=== PATIENT | female | born 1995 | race Two or more races ===

== ENCOUNTER 2016-09-04 10:01 | Emergency (ER) | payer OTHER ==
[~2016-09-04] VITALS: Ht 157.5 cm; Wt 54.5 kg
[2016-09-04 10:55] VITALS: BP 93/62; PULSE 58; RESP 15; O2SAT 100
[2016-09-04 11:55] LABS: APPEARANCE,URINE SLIGHTLY CLOUDY (CLEAR,HAZY); COLOR,URINE YELLOW (YELLOW); OCCULT BLOOD,URINE MODERATE (NEGATIVE); UROBILINOGEN,URINE NORMAL (NORMAL)
[2016-09-04 11:56] LABS: BASOPHILS % (AUTO) 0.4 % (0-3); EOSINOPHILS % (AUTO) 0.6 % (0-5); MONOCYTES % (AUTO) 7.3 % (4-12); Mean Corpuscular Hemoglobin 30.9 pg (27.0-35.0); Mean Corpuscular Volume 94.2 fL (81-100); NEUTROPHILS % (AUTO) 67.9 % (40-74); Platelet Count 255 bil/L (150-400)
--- NOTE | 2016-09-04 12:04 | ED.REPORT ---
HPI-Abd Pain F Under 39 Date of Service September 04, 2016 ED Provider: Liban Boateng DO The patient is a 21 yo female with no significant PMH who presents to the ED for bilateral flank pain onset 2 days ago. Patient reports a week of dysuria, suprapubic tenderness, chills, urinary urgency/frequency, and nausea prior to the onset of the flank pain. She states the flank pain is throbbing and constant. It wraps around her waist and radiates to bilateral upper quadrant abdomen. Patient denies history of UTI in the past and this is the first time she has symptoms like this. She is concerned about kidney infection. Patient denies vaginal discharge or history of STD. She is sexually active with a female partner. She reports regular menses and is not taking any control. No hematuria, vomiting, diarrhea, constipation, or fever. She tried cranberry supplement, but it did not help. No alleviating factor for the flank pain. She has chronic headache that has not changed. She is not taking any medication currently. No PCP. Nursing Notes Stated Complaint: POSS KIDNEYS Chief Complaint: Female Abdominal Pain Nursing Notes Reviewed: Yes Allergies: Coded Allergies: No Known Allergies (Unverified , 09/04/16) Scheduled Sulfamethoxazole/Trimeth 800-160 mg (Bactrim DS) 1 Each Tablet 1 TABLET PO BID Scheduled PRN Naproxen (Naproxen) 250 Mg Tablet 250 MG PO BID PRN PRN For Pain General Time Seen by MD: 11:23 Chief Complaint Abdominal pain, Dysuria, Flank pain right, Flank pain left Hx Obtained From: Patient Arrived By: Walk-in Sudden in Onset?: Yes Onset Occurred: 2 days ago Symptom Duration: Constant Progression since Onset: Unchanged, Constant Location: : Abdomen upper: Flank left: Flank right: Suprapubic Quality: Throbbing Radiation: : Abdomen upper Severity: Current: Moderate Severity: Maximum: Severe Associated with: Reports: Back pain, Chills, Dysuria, Nausea, Urinary frequency , Urinary tract symptoms, Denies: Constipation, Diarrhea, Fever, Hematuria, Shortness of breath, Vaginal discharge, Vomiting Pertinent Negative: Pt denies other symptoms Sexual History / Control: Reports Pt is sexually active : 1 Para: 1 Exacerbated by: Certain positions, Movement Pertinent Negative: Relieved by nothing Recent Healthcare: No recent doctor visit, No recent hospitalization Similar Sx Previous: No Risk Factors Ectopic Risk Stratification No risk factors Past Medical History Past Medical History None Past Surgical History None Family History None Social History Alcohol Use: Denies alcohol use Drug Use: Denies drug use Other Social History: Smokeless tobacco Ambulatory Status Independent Review of Systems Basic Review of Systems Eyes: Vision NL, No discharge ENT: Hearing NL, No pain, No nasal congestion, No pharyngeal pain Hematologic: No bleeding, No bruising Endocrine: No cold intolerance, No heat intolerance, No weight gain, No weight loss Skin: No bruising, No rash, No itch Allergy / Immune: No allergy Neurologic: NL mental status, No weakness, No numbness Psychiatric: Normal thought content Constitutional: Reports: Chills, Denies: Fatigue, Fever Respiratory: Denies: Dyspnea on exertion, Pleuritic pain, Shortness of breath, Wheezing Cardiovascular: Denies: Chest pain, Dyspnea on exertion, Edema GI: Reports: Abdominal pain, Anorexia, Nausea, Denies: Constipation, Diarrhea, Vomiting Female: Reports: Dysuria, Flank pain, Urinary frequency, Urinary urgency, Urination increased, Denies: Hematuria Musculoskeletal: Reports: Back pain, Denies: Joint pain, Joint swelling Complete sys rev & neg: except as marked. Physical Exam Initial Vital Signs Vital Signs (First) Date Time Temp Pulse Resp B/P Pulse Ox O2 Delivery O2 Flow Rate FiO2 09/04/16 10:55 37.1 58 15 93/62 100 Room Air Initial VS: Reviewed Head / Eyes: Atraumatic, Normocephalic, PERRL ENT: Mucous membranes moist, Conjunctiva normal, No scleral icterus Neck: Supple, Non-tender, Full range of motion Lymphatic: No lymphadenopathy Skin: Warm, Dry, No cyanosis Neurologic: Alert, Oriented, Nonfocal Psychiatric: Mood/affect normal, Behavior normal, Normal thought content General/Constitutional: Awake, Alert, No acute distress, Well appearing, Well developed, Well hydrated, Well nourished, Cooperative, Not toxic appearing Respiratory / Chest: Atraumatic, Breath sounds NL, Breath sounds = bilat, No respiratory distress, No rales, No wheezing, No retractions Cardiovascular: Heart rate NL, Regular rhythm, Heart sounds NL, No gallop, No murmurs Abdomen: Atraumatic, Soft, No guarding, No rebound, BS normoactive, No distention, No palpable mass Tenderness/Guarding/Rebound: Positive: Tender RLQ..., Tender RUQ... (Moderate) , Tender flank L, Tender flank R Back: Atraumatic, Inspection NL Flank / Spine / Paraspinal: Positive: Flank tender bilateral Head / Eyes: Atraumatic, Normocephalic, EOMI Skin: Atraumatic, Color NL, No rash Neck: Atraumatic, Supple, No meningismus, Full range of motion, No adenopathy, No swelling, Non-tender Psychiatric: Affect NL, Mood NL Interpretation & Diagnostics Lab Results Interpretation Result Diagram: 09/04/16 1140 09/04/16 1140 Test 09/04/16 11:19 09/04/16 11:40 Urine Color Yellow (YELLOW) Urine Appearance Slightly cloudy Urine pH 7.0 (5.0-8.0) Urine Specific Buckner 1.030 (1.003-1.035) Urine Protein Negativemg/dL (NEG,TRACE) Urine Glucose (UA) Negativemg/dL (NEGATIVE) Urine Ketones Negativemg/dL (NEGATIVE) Urine Occult Blood Moderate (NEGATIVE) Urine Nitrite Negative (NEGATIVE) Urine Bilirubin Negative (NEGATIVE) Urine Urobilinogen Normalmg/dL (NORMAL) Urine Leukocyte Esterase Moderate (NEGATIVE) Urine RBC 3-10/hpf (0-2) Urine WBC 11-50/hpf (0-5) Urine Epithelial Cells Occasional/hpf (NONE-MOD) Urine Crystals None seen (NONE SEEN) Urine Bacteria Many/hpf (NONE-FEW) Urine Hyaline Casts None/lpf (NONE) Urine Granular Casts None seen (NONE SEEN) Urine Waxy Casts None seen (NONE SEEN) Urine Red Blood Cell Casts None seen (NONE SEEN) Urine White Blood Cell Casts None seen (NONE SEEN) Urine Mucus Present (None Seen) Urine Trichomonas None seen (NONE SEEN) Urine Yeast None (NONE SEEN) Urinalysis Comment None Urine Culture Reflexed Indicated White Blood Count 10.5th/mm3 (3.8-10.1) Red Blood Count 4.17mil/mm3 (3.90-5.20) Hemoglobin 12.9g/dL (12.0-15.6) Hematocrit 39.3% (35.0-46.0) Mean Corpuscular Volume 94.2fL (81-100) Mean Corpuscular Hemoglobin 30.9pg (27.0-35.0) Mean Corpuscular Hemoglobin Concent 32.8% (32.0-37.0) Red Cell Distribution Width 12.7% (12.3-15.4) Platelet Count 255bil/L (150-400) Neutrophils (%) (Auto) 67.9% (40-74) Lymphocytes (%) (Auto) 23.7% (14-46) Monocytes (%) (Auto) 7.3% (4-12) Eosinophils (%) (Auto) 0.6% (0-5) Basophils (%) (Auto) 0.4% (0-3) Sodium Level 142mEq/L (134-144) Potassium Level 4.1mEq/L (3.5-5.2) Chloride Level 103mEq/L (97-108) Carbon Dioxide Level 23mmol/L (18-29) Blood Urea Nitrogen 11mg/dL (6-20) Creatinine 0.60mg/dL (0.57-1.00) Estimat Glomerular Filtration Rate 179mL/min (>59) Glucose Level 91mg/dL (60-99) Calcium Level 10.0mg/dL (8.5-10.1) Pro-B-Type Natriuretic Peptide 22.07pg/mL (0-130) Hold Schmidt Top Tube Received (Received) Lab Results Interpretation: mildly elevated WBC. Positive UA for infection. Urinalysis Interpretation Positive leukocyte est, Positive RBC's, Positive WBC's, Positive bacteria Re-Eval/Medical Decision Med Decision/Clinical Course 21 yo female with no significant PMH presented to the ED for 2-day of bilateral flank pain that is throbbing and constant. Prior to the onset of the flank pain , patient noted several urinary symptoms that consistent with acute UTI. She denies history of STD. She is not on control, but she is sexually active with one female partner and does not think she is . She reports regular menses. On Exam, patient appears nontoxic and not in acute distress although she complains of severe back pain. Her abdominal exam revealed moderate suprapubic tenderness, RUQ, and RLQ with no rebound tenderness or guarding. Negative McMurphy's or Psoas. Positive bilateral CVA tenderness. Her labs show significant infection in the urine analysis, but her WBC is only mildly elevated at 10.5. The rest of her labs were normal. In light of her symptoms and exam, it is likely that the patient has an acute, uncomplicated pyelonephritis. There is no other sign of acute abdomen. Patient does not meet the criteria for hospital admission. All findings were discussed with the patient. She agreed with treating the pyelonephritis as outpatient and will return to the ER if her symptoms worsen in the next couple days. We will need to follow up with the Urine Culture and contact the patient if the bacteria is resistant to Bactrim. Counseled Regarding: Diagnosis, Lab results, Need for follow-up, When/why to return to ED Discharge & Departure Shift Change Sign-Out Patient Care Transferred: No Discussed Complaint(s): Yes Laboratory Evaluation: Lab evaluation discussed Primary Impression: Pyelonephritis Disposition: Home Discharge Condition All VS Reviewed: Yes Condition: Stable Patient Instructions: Flank Pain (ED), Kidney Infection (ED) Additional Instructions: Your urine analysis is positive for acute urinary tract infection. Because you also complain of bilateral flank pain, it is likely that you developed a kidney infection called pyelonephritis, which is more serious than the common bladder infection. However, based on our exam and lab results, the severity of the infection appears to be mild to moderate. Therefore, there is no indication for hospital admission at this point. We will treat the infection as outpatient with antibiotic for 10 days. Please take the antibiotic as directed until you finish the whole course even if your symptoms improve. Keep yourself hydrated and drink plenty of water. You can take Tylenol or Ibuprofen as needed for the flank pain. Apply ice/heat will help as well. If your symptoms do not improve in a couple days, or if you develop high fever, vomiting, headache, or lethargy, please return to the ER. We recommend that you establish care with a provider. You can call any provider on the list that was provided today. Or you can also call the [facility] for the ER follow up. Attending Statment The patient was seen and examined together with Dr. Blanco on 09/04/16 and I agree with the history, exam and plan as outlined in the note above. copies to: Abner Ramos Ngochanh H DO September 04, 2016 11:26 Liban Boateng DO September 04, 2016 14:37
[2016-09-04] MEDS ORDERED: SULF1TAB7 PO (13:35)
[2016-09-04] MEDS ORDERED: NAPR250T PO (13:35)
[2016-09-04 13:57] VITALS: BP 93/62; PULSE 58; RESP 15; O2SAT 100
== END 2016-09-04 13:58 | disposition home or self-care (01) ==
LOC: SED 10:01
DX: N10 Acute pyelonephritis (principal)